=== PATIENT | female | born 1995 ===

== ENCOUNTER 2024-08-30 14:30 | Outpatient (REF) | payer OTHER, SELFPAY ==
--- OUTSIDE RECORDS SUMMARY | 2024-08-30 16:10 | XMS_ITS | Encounter Summary ---
Author Organization [employer] 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 Name Role Phone Unavailable Primary Care Provider Unavailabl e Encounter Details Date Type Department Care Team (Late st Contact Info) Description 08/30/2024 1:00 PM EST Office Visit [facility] [address] [place], [place] [id number] Grace Meza FNP [address] [place] [address] Vaginal discharge (Primary Dx) Social History Tobacco Use Types Packs/Day Years Used Date Smoking Tobacco: Never Smokeless Tobacco: Never Tobacco Cessation:Counseling Given: Not Answered Comments Unknown Sex and Gender Information Value Date Recorded Sex Assigned at Female 08/30/2024 9:56 AM EST Legal Sex Female 9:55 AM EST Gender Identity Female 08/30/2024 9:56 AM EST Sexual Orientation Choose not to disclose 2024 9:56 AM EST documented as of this encounter Last Filed Vital Signs Vital Sign Reading Time Taken Comments Blood Pressure 107/69 08/30/2024 1:38 PM EST Pulse 82 08/30/2024 1:38 PM EST Temperature 36.7 ??C (98.1 ??F) 08/30/2024 1:38 PM ES T Respiratory Rate 19 08/30/2024 1:38 PM EST Oxygen Saturation 98% 08/30/2024 1:38 PM EST Inhaled Oxygen Concentration - - Weight 61.2 kg (135 lb) 08/30/2024 1:38 PM EST Height 157.5 cm (5' 2 ) 08/30/2024 1:38 PM EST Body Mass Index 24.69 08/30/2024 1:38 PM EST documented in this encounter Plan of Treatment Scheduled Orders Name Type Priority Associated Diagnoses Orde r Schedule Chlamydia/N. Gonorrhoeae RNA, TMA, Urogenitial Microbiology Routine Vaginal discharge Ordered: 08/30/2024 Bacterial Vaginosis Microbiology Routine Vaginal discharge Ordered: 08/30/2024 documented as of this encounter Visit Diagnoses Diagnosis Vaginal discharge- Primary Leukorrhea, not specified as infective documented in this encounter
--- OUTSIDE RECORDS SUMMARY | 2024-08-30 16:10 | XMS_ITS | Encounter Summary ---
Author Organization [employer] Address [address] [facility] [address] [place] [address] Care Team Providers Care Direct Support Professional Home Health Name Role Phone Unavailable Primary Care Provider Unavailabl e Encounter Details Date Type Department Care Team (Late st Contact Info) Description 08/30/2024 Orders Only [facility] [address] [place] [address] Grace Meza FNP [address] [place], [place] [phone] Social History Tobacco Use Types Packs/Day Years Used Date Smoking Tobacco: Never Smokeless Tobacco: Never Comments Unknown Sex and Gender Information Value Date Recorded Sex Assigned at Female 08/30/2024 9:56 AM EST Legal Sex Female 9:55 AM EST Gender Identity Female 08/30/2024 9:56 AM EST Sexual Orientation Choose not to disclose 2024 9:56 AM EST documented as of this encounter Plan of Treatment Not on file documented as of this encounter Visit Diagnoses Not on filedocumented in this encounter
--- OUTSIDE RECORDS SUMMARY | 2024-08-30 16:10 | XMS_ITS | Clinical Summary ---
Author Organization [facility] Address [address] [facility] [address] [place] [address] Care Team Providers Care Survey Operations Director Name Role Phone Unavailable Primary Care Provider Unavailabl e Allergies No known active allergies Medications fluconazole (Diflucan) 150 MG tablet Take 1 tablet (150 mg) by mouth 1 (one) time for 1 dose. Repeat in 72 hours if symptoms persist. 2 tablet 08/30/2024 08/30/19 25 Active Encounters Date Type Department Care Team Description 08/30/2024 1:00 PM EST Office Visit [facility] [address] [place] [address] Grace Meza FNP Vaginal discharge (Primary Dx) 08/30/2024 Travel 08/30/2024 Orders Only [facility] [address] [place] [address] Grace Meza FNP from Last 3 Months Social History Tobacco Use Types Packs/Day Years Used Date Smoking Tobacco: Never Smokeless Tobacco: Never Tobacco Cessation:Counseling Given: Not Answered Comments Unknown Sex and Gender Information Value Date Recorded Sex Assigned at Female 08/30/2024 9:56 AM EST Legal Sex Female 9:55 AM EST Gender Identity Female 08/30/2024 9:56 AM EST Sexual Orientation Choose not to disclose 2024 9:56 AM EST Last Filed Vital Signs Vital Sign Reading [...] Mass Index 24.69 08/30/2024 1:38 PM EST Plan of Treatment Health Maintenance Due Date Last Done Comments Depression Screening 1996 HIV Screening 1996 SDOH Screening 1996 Alcohol/Substance Use Screening 2008 Family Planning (PISQ) 12/21/2011 Hepatitis C Screening 2014 DTaP/Tdap/Td Vaccines (1 - Tdap) 12/21/2015 Hepatitis B Vaccines (1 of 3 - 19+ 3-dose series) 12/21/2015 Pap Smear 2017 COVID-19 Vaccine (1 - 2023-2 5 season) 2024 Influenza Vaccine (#1) 2024 Tobacco Screening 08/30/2025 08/30/2024 Zoster Vaccines (1 of 2) 2046 RSV Patients and Pa tients Aged 60 years or older (1 - 1-dose 75+ series) 12/21/2071 HIB Vaccines Aged Out No longer eligi ble based on patient's age to complete this topic HPV Vaccines Aged Out No longer eligi ble based on patient's age to complete this topic Hepatitis A Vaccines Aged Out No long er eligible based on patient's age to complete this topic IPV Vaccines Aged Out No longer eligi ble based on patient's age to complete this topic Meningococcal Vaccine Aged Out No jose kiet eligible based on patient's age to complete this topic Pneumococcal Vaccine: Pediat rics (0 to 5 Years) and At-Risk Patients (6 to 49) Years) Aged Out No longer elig ible based on patient's age to complete this topic RSV under 20 months Aged Out No longe r eligible based on patient's age to complete this topic Rotavirus Vaccines Aged Out No longer eligible based on patient's age to complete this topic Insurance
--- OUTSIDE RECORDS SUMMARY | 2024-08-30 16:10 | XMS_ITS | Encounter Summary ---
Author Organization [employer] Address [address] [facility] [address] [place] [address] Care Team Providers Care Cut Off Sawyer Shingle Mill Name Role Phone Unavailable Primary Care Provider Unavailabl e Encounter Details Date Type Department Care Team (Latest Contact Info) Description 08/30/2024 Travel Social History Tobacco Use Types Packs/Day Years [...]
[2024-08-31 01:42] LABS: CT PCR NOT DETECTED (Not Detect.); NG PCR NOT DETECTED (Not Detect.)
[2024-08-31 09:37] LABS: Bacterial Vaginosis PCR NEGATIVE (Negative); Candida Group PCR DETECTED (Not Detect); Candida glab krusei PCR NOT DETECTED (Not Detect); Trichomonas vaginalis PCR NOT DETECTED (Not Detect)
== END 2024-08-30 14:31 | disposition home or self-care (01) ==
LOC: HO.CHCLNP 14:30
PROVIDERS: Visit Provider Registered Nurse
DX: N89.8 Other specified noninflammatory disorders of vagina (principal)
CPT/HCPCS: 81515; 87491; 87591